=== PATIENT | female | born 1965 | race Caucasian/White ===

== ENCOUNTER → 2016-08-20 | Outpatient (CLI) | payer OTHER ==
[~2016-08-20] MED LIST: MIRENA52 MG IY; NOLVADEX20 MG PO; NORCO 5/3251 TABLET PO; PAXIL20 MG PO
== END | disposition home or self-care (01) ==
LOC: AMB 07:56
PROC: 0HRX07Z Replacement of Left Nipple with Autologous Tissue Substitute, Open Approach (ICD-10-PCS; principal; 2016-08-20)
DX: Z42.1 Encounter for breast reconstruction following mastectomy (principal); Z90.12 Acquired absence of left breast and nipple; Z85.3 Personal history of malignant neoplasm of breast; F32.9 Major depressive disorder, single episode, unspecified; Z80.6 Family history of leukemia; Z80.1 Family history of malignant neoplasm of trachea, bronchus and lung